=== PATIENT | male | born 1985 | race Caucasian/White ===

== ENCOUNTER 2017-10-08 00:01 | Emergency (ER) | payer OTHER ==
[~2017-10-08] VITALS: Ht 193 cm; Wt 81.7 kg
[2017-10-08] MEDS ORDERED: KEFLEX500 M1 PO (00:21)
[2017-10-08] MEDS ORDERED: TRAMADOL 50 MG50 MG PO (00:21)
[2017-10-08] MEDS ORDERED: HYDROCODON-ACE1 EAC7 PO (00:40)
[2017-10-08 00:42] VITALS: BP 113/75
== END 2017-10-08 00:42 | disposition home or self-care (01) ==
LOC: M.ERS 00:01
DX: S41.111D Laceration without foreign body of right upper arm, subsequent encounter (principal); L08.9 Local infection of the skin and subcutaneous tissue, unspecified; X58.XXXD Exposure to other specified factors, subsequent encounter; F17.210 Nicotine dependence, cigarettes, uncomplicated

== ENCOUNTER 2017-10-25 15:43 | Emergency (ER) | payer OTHER ==
[~2017-10-25] VITALS: Ht 193 cm; Wt 83.9 kg
[~2017-10-25 15:43] MED LIST: HYDROCODON-ACE1 EAC7 PO; KEFLEX500 M1 PO; TRAMADOL 50 MG50 MG PO
[2017-10-25] MEDS ORDERED: AUGMENTIN400 MG/53 PO (17:03)
[2017-10-25 17:14] VITALS: BP 132/94
== END 2017-10-25 17:15 | disposition home or self-care (01) ==
LOC: M.ERS 15:43
DX: S60.222A Contusion of left hand, initial encounter (principal); W50.3XXA Accidental bite by another person, initial encounter; Y93.89 Activity, other specified; Y92.89 Other specified places as the place of occurrence of the external cause; Y99.8 Other external cause status

== ENCOUNTER 2017-12-15 04:25 | Emergency (ER) | payer OTHER ==
[~2017-12-15] VITALS: Ht 193 cm; Wt 86.2 kg
[~2017-12-15 04:25] MED LIST changes: +AUGMENTIN400 MG/53 PO
[2017-12-15] MEDS ORDERED: HYDROCODON-ACE1 EAC7 PO (04:56)
[2017-12-15] MEDS ORDERED: KEFLEX500 M1 PO (04:56)
[2017-12-15] MEDS ORDERED: BACTRIM DS TAB1 EACH PO (04:56)
[2017-12-15 05:05] VITALS: BP 143/96
== END 2017-12-15 05:10 | disposition home or self-care (01) ==
LOC: M.ERS 04:25
DX: L02.01 Cutaneous abscess of face (principal)

== ENCOUNTER 2018-09-12 18:34 | Emergency (ER) | payer OTHER ==
[~2018-09-12] VITALS: Ht 193 cm; Wt 81.7 kg
[~2018-09-12 18:34] MED LIST changes: +BACTRIM DS TAB1 EACH PO
[2018-09-12 18:55] LABS: URINE BILIRUBIN NEGATIVE (Negative); URINE BLOOD NEGATIVE (Negative); URINE CLARITY CLEAR; URINE COLOR YELLOW; URINE GLUCOSE-RANDOM NEGATIVE (Negative); URINE KETONES NEGATIVE (Negative); URINE LEUKOCYTES-REFLEX NEGATIVE (Negative); URINE NITRITE-REFLEX NEGATIVE (Negative); URINE PROTEIN NEGATIVE (Negative); URINE SPECIFIC GRAVITY 1.015 (1.005-1.030); URINE UROBILINOGEN 0.2 E.U./dl (0.2-1.0)
[2018-09-12 19:41] LABS: AMP/METHAMP POSITIVE (Negative); BARBITURATES Negative (Negative); BENZODIAZEPINES Negative (Negative); COCAINE Negative (Negative); METHADONE Negative (Negative); OPIATES Negative (Negative); PCP Negative (Negative); THC Negative (Negative)
[2018-09-12 19:47] VITALS: BP 147/88
== END 2018-09-12 19:49 | disposition home or self-care (01) ==
LOC: M.ERS 18:34
PROVIDERS: Physician Assistant
DX: Z20.2 Contact with and (suspected) exposure to infections with a predominantly sexual mode of transmission (principal); F15.10 Other stimulant abuse, uncomplicated; M25.511 Pain in right shoulder; F17.200 Nicotine dependence, unspecified, uncomplicated; Z91.09 Other allergy status, other than to drugs and biological substances

== ENCOUNTER 2019-01-18 00:06 | Emergency (ER) | payer OTHER ==
[~2019-01-18] VITALS: Ht 190.5 cm; Wt 82.2 kg
[2019-01-18 01:00] LABS: CALCIUM 8.6 mg/dL (8.5-10.1); CREATININE 0.7 mg/dL (0.6-1.3); POTASSIUM 3.5 mmol/L (3.5-5.1)
[2019-01-18] MEDS ORDERED: ATIVAN1 M1 PO (01:10)
[2019-01-18 02:30] VITALS: BP 124/84
--- NOTE | 2019-01-18 11:09 | EKG ---
[place] [address] ELECTROCARDIOGRAM REPORT Name: SUNITA WEBSTER Room: [facility]#: [id number] Admission: 01/18/19 Attend Phys: Discharge: 01/18/19 Date of : 85 Report #: [id number] THIS REPORT FOR: //name// [facility] ED Test Date: 2019-01-18 Test Time: 00:26:22 Pat Name: SUNITA WEBSTER Department: Room: Gender: M [employer]: : 1985 Requested By: Kia Mcgill Order Number: [id number] Reading MD: Bonilla Caba Measurements Intervals [place] Rate: 88 P: 76 IL: 119 QRS: 83 QRSD: 99 T: 39 QT: 348 QTc: 421 Interpretive Statements Sinus arrhythmia Ventricular premature complex Borderline short [place] interval Borderline ST depression, diffuse leads Baseline wander in lead(s) I,II,III,aVL,aVF,V2,V3,V4,V5,V6 No previous ECG available for comparison Electronically Signed On 01-18-2019 11:09:37 [employer]ICAL NUM[employer]ICAL CONTROL OPERATOR by Bonilla Caba [email or web address] <ELECTRONICALLY SIGNED> By: Bonilla Caba MD, FACC 01/18/19 1109 0026 0026 Bonilla Caba MD, FAC /EPI
== END 2019-01-18 02:35 | disposition home or self-care (01) ==
LOC: M.ERS 00:06 → EDBD 00:06 → M.ERS 02:35
PROVIDERS: Emergency Medicine
DX: F10.129 Alcohol abuse with intoxication, unspecified (principal); M19.90 Unspecified osteoarthritis, unspecified site; Z91.018 Allergy to other foods; Y90.2 Blood alcohol level of 40-59 mg/100 ml

== ENCOUNTER 2019-01-21 13:42 | Emergency (ER) | payer OTHER ==
[~2019-01-21] VITALS: Ht 182.9 cm; Wt 68.0 kg
[~2019-01-21 13:42] MED LIST changes: +ATIVAN1 M1 PO
[2019-01-21] MEDS ORDERED: NORCO 5-325 TA1 EAC1 PO ×2 (14:16→14:58)
[2019-01-21] MEDS ORDERED: IBU800 MG PO (14:18)
[2019-01-21 15:03] VITALS: BP 120/88
== END 2019-01-21 15:03 | disposition home or self-care (01) ==
LOC: M.ERS 13:42
DX: R07.81 Pleurodynia (principal); F17.210 Nicotine dependence, cigarettes, uncomplicated